=== PATIENT | male | born 1945 | race Caucasian/White ===

== ENCOUNTER 2020-02-02 15:21 | Emergency (ER) | payer MEDICAID ==
[~2020-02-02] VITALS: Ht 172.7 cm; Wt 71.0 kg
[~2020-02-02 15:21] MED LIST: atropine 0.1mg/ml 10ml syringe ONE
[2020-02-02 15:23] VITALS: BP 93/48
--- NOTE | 2020-02-02 15:26 | NUR ---
1526, we had no pulses, we began CPR 1528: we gave epi, still no pulses 1530: sodium bicarb was given 1531: pulse were obtained when we did our pulse checks and 1mg of epi was given at this time
[2020-02-02] MEDS ORDERED: normal saline 1000ML IV soln IV ONE (15:40)
--- NOTE | 2020-02-02 15:48 | NUR ---
1543: we lost pulses, in room. we began cpr, epi was given at 1543 1546: bicarb was given. pulses were checked and we regained pulses MD Alcaraz and Wendy in room. Setting up for a thoravent.
[2020-02-02 15:50] LABS: BASOPHILS # (AUTO) 0.1 X10'3 (0-0.2); BASOPHILS % (AUTO) 0.4 % (0-1); EOSINOPHILS # (AUTO) 0.1 X10'3 (0-0.9); EOSINOPHILS % (AUTO) 0.3 % (0-6); HEMATOCRIT 38.1 % (42.0-52.0); HEMOGLOBIN 12.1 g/dl (14.0-17.9); LYMPHOCYTES # (AUTO) 2.4 X10'3 (1.1-4.8); LYMPHOCYTES % (AUTO) 12.1 % (21-51); MEAN CORPUSCULAR HGB CONC 31.8 g/dL (33.0-36.5); MEAN CORPUSCULAR VOLUME 94.1 FL (78-98); MEAN PLATELET VOLUME 9.1 FL (7.4-10.4); MONOCYTES # (AUTO) 1.2 X10'3 (0-0.9); MONOCYTES % (AUTO) 6.3 % (2-12); NEUTROPHILS # (AUTO) 15.7 X10'3 (1.8-7.7); NEUTROPHILS % (AUTO) 80.9 % (42-75); PLATELET COUNT 181 X10'3 (140-440); RED BLOOD COUNT 4.05 X10'6 (4.70-6.10); RED CELL DISTRIBUTION WIDTH 14.6 % (11.5-14.5); WHITE BLOOD COUNT 19.5 X10'3 (4.5-11.0)
--- NOTE | 2020-02-02 15:53 | NUR ---
MD SCOTT PLACING A THORAVENT WITH MD LARKIN IN ROOM
--- NOTE | 2020-02-02 15:59 | NUR ---
DR. LARKIN SPOKE WITH SISTER AND SAID PT. IS NOW A DNR AT [id number]
[2020-02-02 16:03] LABS: PARTIAL THROMBOPLASTIN TIME 30 SECONDS (22-32)
--- NOTE | 2020-02-02 16:05 | NUR ---
PEA ON MONITOR, NO PALPABLE PULSES. MD SCOTT IN ROOM AND CALLED TIME OF 1605
[2020-02-02 16:06] LABS: ALANINE AMINOTRANSFERASE 222 U/L (12-78); ALBUMIN 1.4 G/DL (3.4-5.0); ALBUMIN/GLOBULIN RATIO 0.5 (1.1-1.5); ALKALINE PHOSPHATASE 76 IU/L (46-116); ANION GAP 11 (8-16); ASPARTATE AMINO TRANSFERASE 180 U/L (10-37); BILIRUBIN,TOTAL 1.4 MG/DL (0.1-1.0); BLOOD UREA NITROGEN 72 MG/DL (7-18); BUN/CREATININE RATIO 39.6 (5.4-32.0); CALCIUM 8.2 MG/DL (8.5-10.1); CHLORIDE 111 MMOL/L (99-107); CREATININE 1.82 MG/DL (0.60-1.10); GLUCOSE 300 MG/DL (70-104); MAGNESIUM 2.5 MG/DL (1.5-2.4); TOTAL CARBON DIOXIDE 37.7 MMOL/L (24-32); TOTAL PROTEIN 4.1 G/DL (6.4-8.2); eGFR 37 ML/MIN
[2020-02-02 16:09] LABS: POTASSIUM 4.7 MMOL/L (3.5-5.1)
[2020-02-02 16:11] LABS: NUCLEATED RED BLOOD CELLS 1 /100WBC (0-0); TOTAL CELLS COUNTED 100
[2020-02-02 16:12] LABS: SODIUM 160 MMOL/L (135-145)
[2020-02-02 16:13] LABS: LARGE PLATELETS FEW; PLATELET ESTIMATE NORMAL; POLYCHROMASIA 1+
--- NOTE | 2020-02-02 16:14 | NUR ---
organ donation was called. referral number is: [id number]
--- NOTE | 2020-02-02 16:30 | NUR ---
family called at 1630, sister is Raul Chaudhari and informed her of pt's . Dr. Nguyen called her prior to obtain his code status. Addendum: 02/02/20 at 1705 by [email or web address] spoke to sister and she informed me Segun Torres was not an organ donor. Will call [facility] to inform them.
--- NOTE | 2020-02-02 16:52 | NUR ---
Called [employer] and they gave permission to call the mortuary. spoke to briana at the equipment lead's office
--- NOTE | 2020-02-02 16:55 | NUR ---
Spoke to [facility] and they will milk pickup truck driver the body in about 25-30 minutes. home informed me that they will call back sister (Raul Haqchano).
--- NOTE | 2020-02-02 17:07 | NUR ---
Called [facility] to inform them sister had told me Segun Torres was not an organ donor and they will contact the family. Family aware they will receive a call.
== END 2020-02-02 17:47 | disposition expired ==
LOC: ER 15:22
DX: I46.9 Cardiac arrest, cause unspecified (principal); R79.1 Abnormal coagulation profile
CPT/HCPCS: 32551; 36415; 71045; 80053; 82948; 83605; 83735; 84145; 84484; 85025; 85610; 85730; 87040; 92950; 93005; 94002; 99285; J0461; 94760